=== PATIENT | female | born 1985 | race Caucasian/White ===

== ENCOUNTER 2016-11-16 19:27 | Emergency (ER) | payer OTHER ==
[2016-11-16 20:33] LABS: BASOPHIL % 1.1 % (0-2); PLATELET COUNT 251 x10^3mcL (130-400)
[2016-11-16 20:36] LABS: RED CELL DISTRIBUTION WIDTH 18.1 % (11.5-14.5)
[2016-11-16 20:41] LABS: CALCIUM 8.5 mg/dL (8.5-10.1); CARBON DIOXIDE 23.8 mmol/L (21-32); CHLORIDE SERUM 105 mmol/L (98-107); CREATININE SERUM 0.8 mg/dL (0.6-1.0); GFR1 > 60 mL/min; GLUCOSE SERUM 82 mg/dL (74-106); SODIUM SERUM 144 mmol/L (136-145)
[2016-11-16 20:46] LABS: ALBUMIN 4.1 g/dL (3.4-5.0); ALKALINE PHOSPHATASE 104 U/L (46-116); ALT/SGPT 130 U/L (14-59); AMYLASE 42 U/L (25-115); AST/SGOT 242 U/L (15-37); BILIRUBIN TOTAL 0.33 mg/dL (0.20-1.00); LIPASE 111 IU/L (73-393)
[2016-11-16 21:24] LABS: AMPHETAMINE QUAL UR NONE DETECTED (NEG <=1000)
[2016-11-16 22:49] VITALS: BP 104/53
== END 2016-11-16 22:49 | disposition home or self-care (01) ==
LOC: ED 19:27
PROVIDERS: Emergency Medicine
DX: K29.20 Alcoholic gastritis without bleeding (principal); R94.5 Abnormal results of liver function studies
CPT/HCPCS: 83880; C9113; J2405; J2765

== ENCOUNTER 2016-11-28 14:26 | Emergency (ER) | payer OTHER ==
[2016-11-28 19:15] LABS: BASOPHIL % 0.7 % (0-2); PLATELET COUNT 138 x10^3mcL (130-400); RED CELL DISTRIBUTION WIDTH 19.3 % (11.5-14.5)
[2016-11-28 19:16] LABS: CALCIUM 8.7 mg/dL (8.5-10.1); CARBON DIOXIDE 26.6 mmol/L (21-32); CHLORIDE SERUM 107 mmol/L (98-107); CREATININE SERUM 0.6 mg/dL (0.6-1.0); GFR1 > 60 mL/min; GLUCOSE SERUM 78 mg/dL (74-106); POTASSIUM SERUM 3.8 mmol/L (3.5-5.1); SODIUM SERUM 144 mmol/L (136-145)
[2016-11-28 19:21] LABS: ALBUMIN 3.6 g/dL (3.4-5.0); ALKALINE PHOSPHATASE 123 U/L (46-116); ALT/SGPT 125 U/L (14-59); AST/SGOT 231 U/L (15-37); BILIRUBIN TOTAL 0.3 mg/dL (0.20-1.00); TOTAL PROTEIN, SERUM 7.2 g/dL (6.4-8.2)
[2016-11-28 20:08] VITALS: BP 138/78
== END 2016-11-28 20:08 | disposition home or self-care (01) ==
LOC: ED 14:26
PROVIDERS: Specialist
DX: F10.239 Alcohol dependence with withdrawal, unspecified (principal)
CPT/HCPCS: 83880; G0480; J2060; J3411; J3475; J3490; J7030

== ENCOUNTER 2018-05-18 19:37 | Emergency (ER) | payer OTHER ==
[~2018-05-18] VITALS: Ht 154.9 cm; Wt 54.9 kg
[2018-05-18 19:42] VITALS: Ht 154.9 cm; Wt 54.9 kg
[2018-05-18 22:51] VITALS: BP 118/73
== END 2018-05-18 22:51 | disposition home or self-care (01) ==
LOC: ED 19:37
DX: S63.602A Unspecified sprain of left thumb, initial encounter (principal); F17.210 Nicotine dependence, cigarettes, uncomplicated; W01.0XXA Fall on same level from slipping, tripping and stumbling without subsequent striking against object, initial encounter; Y93.89 Activity, other specified; Y92.89 Other specified places as the place of occurrence of the external cause; Y99.8 Other external cause status

== ENCOUNTER 2018-10-02 23:13 | Emergency (ER) | payer OTHER | END 2018-10-03 01:09 | disposition other institution (70) | LOC: ED 23:13 | DX: Z02.89 Encounter for other administrative examinations (principal) ==

== ENCOUNTER 2018-10-02 23:13 | Emergency (ER) | payer OTHER ==
[~2018-10-02] VITALS: Ht 154.9 cm; Wt 68.0 kg
[2018-10-02 23:21] VITALS: Ht 154.9 cm; Wt 68.0 kg
[2018-10-02 23:52] LABS: CALCIUM 8.9 mg/dL (8.5-10.1); CARBON DIOXIDE 26.9 mmol/L (21-32); CHLORIDE SERUM 108 mmol/L (98-107); CREATININE SERUM 0.9 mg/dL (0.6-1.0); GFR1 > 60 mL/min; GLUCOSE SERUM 98 mg/dL (74-106); POTASSIUM SERUM 4.2 mmol/L (3.5-5.1); SODIUM SERUM 146 mmol/L (136-145)
[2018-10-02 23:57] LABS: BASOPHIL % 0.5 % (0-2); PLATELET COUNT 291 x10^3mcL (130-400)
[2018-10-02 23:58] LABS: ALKALINE PHOSPHATASE 95 U/L (46-116); ALT/SGPT 31 U/L (14-59); AST/SGOT 15 U/L (15-37); BILIRUBIN TOTAL 0.2 mg/dL (0.20-1.00); TOTAL PROTEIN, SERUM 7.8 g/dL (6.4-8.2)
[2018-10-03 01:09] VITALS: BP 103/55
== END 2018-10-03 01:09 | disposition other institution (70) ==
LOC: ED 23:13
PROVIDERS: Emergency Medicine
DX: S00.83XA Contusion of other part of head, initial encounter (principal); S50.311A Abrasion of right elbow, initial encounter; S40.212A Abrasion of left shoulder, initial encounter; F10.129 Alcohol abuse with intoxication, unspecified; W01.0XXA Fall on same level from slipping, tripping and stumbling without subsequent striking against object, initial encounter; Y93.89 Activity, other specified; Y92.89 Other specified places as the place of occurrence of the external cause; Y99.8 Other external cause status
CPT/HCPCS: 90715; Q0092

== ENCOUNTER 2020-06-10 11:33 | Emergency (ER) | payer OTHER ==
[~2020-06-10] VITALS: Ht 157.5 cm; Wt 52.2 kg
[2020-06-10 11:35] VITALS: Ht 157.5 cm; Wt 52.2 kg
[2020-06-10 12:07] LABS: BASOPHIL % 0.4 % (0.2-1.3); PLATELET COUNT 268 x10^3mcL (179-408)
[2020-06-10 12:17] LABS: RED CELL DISTRIBUTION WIDTH 17.2 % (12.3-17.7)
[2020-06-10 12:22] LABS: CALCIUM 8.5 mg/dL (8.5-10.1); CARBON DIOXIDE 28.8 mmol/L (21-32); CHLORIDE SERUM 104 mmol/L (98-107); CREATININE SERUM 0.8 mg/dL (0.6-1.0); GFR1 > 60 mL/min; GLUCOSE SERUM 97 mg/dL (74-106); POTASSIUM SERUM 4.2 mmol/L (3.5-5.1); SODIUM SERUM 137 mmol/L (136-145)
[2020-06-10 12:27] LABS: ALBUMIN 3.6 g/dL (3.4-5.0); ALKALINE PHOSPHATASE 95 U/L (46-116); ALT/SGPT 29 U/L (14-59); AST/SGOT 21 U/L (15-37); BILIRUBIN TOTAL 0.2 mg/dL (0.20-1.00); TOTAL PROTEIN, SERUM 6.9 g/dL (6.4-8.2)
[2020-06-10 14:39] LABS: UA SPECIFIC GRAVITY 1.025 (1.005-1.035); microscopic required? YES; urine erythrocyte 3+ (NEGATIVE)
[2020-06-10 15:34] VITALS: BP 118/73
== END 2020-06-10 15:25 | disposition home or self-care (01) ==
LOC: ED 11:33
PROVIDERS: Student in an Organized Health Care Education/Training Program
DX: N20.0 Calculus of kidney (principal)
CPT/HCPCS: J1885; J2270; J7030